=== PATIENT | male | born 1995 | race African-American/Black ===

== ENCOUNTER 2016-05-29 14:07 | Emergency (ER) | payer MEDICAID, OTHER ==
[~2016-05-29] VITALS: Ht 175.3 cm; Wt 75.0 kg
[~2016-05-29 14:07] MED LIST: ALBU1AER INH; ALBUAER3 INH
[2016-05-29 14:29] VITALS: BP 120/68; PULSE 96; RESP 16; TEMP 98.3; O2SAT 97
--- NOTE | 2016-05-29 15:48 | PD ---
HPI Chief Complaint: Chest Pain Stated Complaint: CHEST COMPLAINT Time Seen by Provider: 15:48 Travel History International Travel<30 days: No Contact w/Intl Traveler<30days: No Known affected area: No History of Present Illness HPI 21-year-old male with a history of asthma presents to emergency department for evaluation of substernal chest pain, nonradiating, that occurred last night following an argument with his . Patient states that it was sharp but resolved. He states he had some associated shortness of breath. He denies any cardiac history. Denies illicit drug use. Denies any current chest pain or tightness. He is not having any shortness of breath. Denies nausea, vomiting, diarrhea. No recent illnesses, fever, chills. He denies any recent travel. No history of PE or DVT. No other symptoms to report. History Past Medical History Medical History: Denies Significant Hx Social History Alcohol Use: No Tobacco Use: Yes Allergies-Medications (Allergen,Severity, Reaction): Coded Allergies: No Known Allergies (Verified , 03/03/16) Reported Meds & Prescriptions Reported Meds & Active Scripts Active Proair Hfa 8.5 GM Inh (Albuterol Sulfate) 90 Mcg/Act Aer 2 Puff INH Q4-6H PRN 108 mcg/actuation Reported Proair Hfa (Albuterol Sulfate) 8.5 Gm Aero 2 Puff INH Q4 * SHAKE WELL BEFORE USE * Review of Systems Except as stated in HPI: all other systems reviewed are Neg Physical Exam Narrative GENERAL: Well-nourished, well-developed male patient in no acute distress SKIN: Warm and dry. HEAD: Normocephalic. EYES: No scleral icterus. No injection or drainage. NECK: Supple, trachea midline. No JVD or lymphadenopathy. CARDIOVASCULAR: Elevated rate and rhythm without murmurs, gallops, or rubs. RESPIRATORY: Breath sounds equal bilaterally. No accessory muscle use. GASTROINTESTINAL: Abdomen soft, non-tender, nondistended. MUSCULOSKELETAL: No cyanosis, or edema. BACK: Nontender without obvious deformity. No CVA tenderness. Data Data Last Documented VS Vital Signs Date Time Temp Pulse Resp B/P Pulse Ox O2 Delivery O2 Flow Rate FiO2 05/29/16 14:29 98.3 96 16 120/68 97 Orders Electrocardiogram (05/29/16 ) Basic Metabolic Panel (Bmp) (05/29/16 15:47) Ckmb (Isoenzyme) Profile (05/29/16 15:47) Complete Blood Count With Diff (05/29/16 15:47) Magnesium (Mg) (05/29/16 15:47) Prothrombin Time / Inr (Pt) (05/29/16 15:47) Act Partial Throm Time (Ptt) (05/29/16 15:47) Troponin I (05/29/16 15:47) Chest, Single Ap (05/29/16 15:47) CKMB (05/29/16 16:05) CKMB% (05/29/16 16:05) Labs Laboratory Tests Test 05/29/16 16:05 White Blood Count 5.8 TH/MM3 Red Blood Count 5.26 MIL/MM3 Hemoglobin 17.2 GM/DL Hematocrit 50.1 % Mean Corpuscular Volume 95.1 FL Mean Corpuscular Hemoglobin 32.6 PG Mean Corpuscular Hemoglobin 34.3 % Concent Red Cell Distribution Width 13.1 % Platelet Count 215 TH/MM3 Mean Platelet Volume 8.6 FL Neutrophils (%) (Auto) 62.5 % Lymphocytes (%) (Auto) 28.0 % Monocytes (%) (Auto) 7.9 % Eosinophils (%) (Auto) 0.9 % Basophils (%) (Auto) 0.7 % Neutrophils # (Auto) 3.6 TH/MM3 Lymphocytes # (Auto) 1.6 TH/MM3 Monocytes # (Auto) 0.5 TH/MM3 Eosinophils # (Auto) 0.0 TH/MM3 Basophils # (Auto) 0.0 TH/MM3 CBC Comment DIFF FINAL Differential Comment Prothrombin Time 12.1 SEC Prothromb Time International 1.1 RATIO Ratio Activated Partial 25.0 SEC Thromboplast Time Sodium Level 139 MEQ/L Potassium Level 3.5 MEQ/L Chloride Level 104 MEQ/L Carbon Dioxide Level 27.7 MEQ/L Anion Gap 7 MEQ/L Blood Urea Nitrogen 13 MG/DL Creatinine 1.30 MG/DL Estimat Glomerular Filtration 85 ML/MIN Rate Random Glucose 79 MG/DL Calcium Level 9.6 MG/DL Magnesium Level 2.0 MG/DL Total Creatine Kinase 369 U/L Creatine Kinase MB 1.3 NG/ML Creatine Kinase MB % 0.4 % Troponin I LESS THAN 0.02 NG/ML MDM Medical Decision Making Medical Screen Exam Complete: Yes Emergency Medical Condition: Yes Medical Record Reviewed: Yes Differential Diagnosis Indigestion versus bronchospasm versus muscle strain versus costochondritis versus pleuritis Narrative Course 21-year-old male presents to the emergency department for evaluation of substernal chest pain, nonradiating that occurred last night after an argument with his heart. Patient appears without distress vital signs are stable except for slightly elevated heart rate. EKG is normal sinus rhythm without ST elevation or depression. This was evaluated by ED physician. Chest x-rays without acute cardiopulmonary disease. Lab work is without acute concern. CPK is elevated at 369. Based on Wells criteria, PE is low probability. Patient states that he feels well at this time. He is requesting to go home. Based on results of tests and no cardiac history and patient's age, I feel that patient can be appropriately discharged at this time. Discussed the patient denied any physician Dr. Floyd who agrees. Patient agrees to return immediately with any acute worsening symptoms. Diagnosis Primary Impression: Chest wall pain Referrals: Primary Care Physician Patient Instructions: Chest Wall Pain (ED), General Instructions Additional Instructions: Follow-up with a primary care provider Maintain adequate oral hydration Return immediately to the emergency department with symptoms Med/Other Pt SpecificInfo: No Change to Meds Disposition: 01 DISCHARGE HOME Condition: Stable Sailaja Mckeon May 29, 2016 15:48
[2016-05-29 16:26] LABS: AUTOMATED NEUTROPHIL # 3.6 TH/MM3 (1.8-7.7); BASOPHIL % 0.7 % (0.0-2.0); EOSINOPHIL % 0.9 % (0.0-4.0); HEMATOCRIT 50.1 % (39.0-51.0); HEMO FLAGS DIFF FINAL; LYMPHOCYTE # 1.6 TH/MM3 (1.0-4.8); MEAN CELL VOLUME 95.1 FL (80.0-100.0); MEAN CORPUSCULAR HEMOGLOBIN 32.6 PG (27.0-34.0); MEAN CORPUSCULAR HGB CONC 34.3 % (32.0-36.0); MONO % 7.9 % (0.0-8.0); NEUT % 62.5 % (16.0-70.0); PLATELET COUNT 215 TH/MM3 (150-450); RED BLOOD COUNT 5.26 MIL/MM3 (4.50-5.90); RED CELL DISTRIBUTION WIDTH 13.1 % (11.6-17.2); WHITE BLOOD COUNT 5.8 TH/MM3 (4.0-11.0)
--- NOTE | 2016-05-29 16:37 | RADRPT ---
EXAM DATE/TIME: 05/29/2016 15:58 [facility] COMPARISON: No previous studies available for comparison. INDICATIONS : Chest pain. MEDICAL HISTORY : None. SURGICAL HISTORY : None. ENCOUNTER: Initial ACUITY: 2 days PAIN SCORE: 6/10 LOCATION: Bilateral chest FINDINGS: A single view of the chest demonstrates the lungs to be symmetrically aerated without evidence of mas s, infiltrate or effusion. The cardiomediastinal contours are unremarkable. Osseous structures are intact. CONCLUSION: No acute disease. Hakeem Ruffin MD on May 29, 2016 at 16:35 Board Certified Radiologist. This report was verified electronically.
[2016-05-29 16:54] LABS: ANION GAP 7 MEQ/L (5-15); BICARBONATE 27.7 MEQ/L (21.0-32.0); BLOOD UREA NITROGEN 13 MG/DL (7-18); CHLORIDE 104 MEQ/L (98-107); GLOMERULAR FILTRATION RATE 85 ML/MIN (>89); POTASSIUM 3.5 MEQ/L (3.5-5.1); SODIUM (NA) 139 MEQ/L (136-145)
[2016-05-29 16:58] LABS: CREATINE KINASE 369 U/L (39-308); INTERNATIONAL NORMALIZED RATIO 1.1 RATIO; PROTHROMBIN TIME - PATIENT 12.1 SEC (9.8-11.6)
[2016-05-29 17:10] LABS: CKMB 1.3 NG/ML (0.5-3.6)
--- NOTE | 2016-05-30 14:23 | EKG ---
Date Performed: 05/29/2016 Time Performed: 15:01:56 PTAGE: 21 years EKG: Sinus rhythm EARLY REPOLARIZATION BORDERLINE ECG PREVIOUS TRACING : 06/29/2013 09.04 Since previous tracing, no significant change noted DOCTOR: Casandra Allen Interpretating Date/Time 05/30/2016 14:21:10
== END 2016-05-29 17:36 | disposition home or self-care (01) ==
LOC: NETRI 14:07
DX: R07.89 Other chest pain (principal); R94.31 Abnormal electrocardiogram [ECG] [EKG]; Z72.0 Tobacco use
CPT/HCPCS: 71010; 80048; 82550; 82552; 83735; 84484; 85025; 85610; 85730; 93005

== ENCOUNTER 2016-10-27 14:21 | Emergency (ER) | payer OTHER ==
[~2016-10-27] VITALS: Ht 175.3 cm; Wt 65.0 kg
[2016-10-27 14:24] VITALS: BP 133/69; PULSE 89; RESP 16; TEMP 99.3; O2SAT 97
--- NOTE | 2016-10-27 14:49 | PD ---
Physical Exam Time Seen by Provider: 14:48 Narrative 21 y/o male with cough, sinus congestion for 3 days. Denies fever. Hx asthma. Vital signs reviewed. Seen at triage desk. Awaiting bed placement. Data Data Last Documented VS Vital Signs Date Time Temp Pulse Resp B/P Pulse Ox O2 Delivery O2 Flow Rate FiO2 10/27/16 14:24 99.3 89 16 133/69 97 Room Air [facility] Medical Record Reviewed: Yes Supervised Visit with KAY: John Tracy Oct 27, 2016 14:49
--- NOTE | 2016-10-27 15:43 | PD ---
HPI Chief Complaint: Cold / Flu Symptoms Time Seen by Provider: 15:43 Travel History International Travel<30 days: No Contact w/Intl Traveler<30days: No Traveled to known affect area: No History of Present Illness HPI 21-year-old male presents to the emergency Department with complaint of sinus congestion, cough, chest tightness, shortness of breath, and sore throat 3 days. History of asthma. Does not have an inhaler. Reports wheezing "sometimes." Denies fever, vomiting. Denies body aches, headache. Denies lump in throat, difficulty swallowing, and usual drooling. Reports painful swallowing. Has not taken any medications or tried any trauma to the bases symptoms. No known allergies. Has no medical complaints. No other modified factors or associated signs and symptoms. PFSH Past Medical History Asthma: Yes Headaches: Yes Respiratory: Yes (ASTHMA) Immunizations Current: Yes Sleep Apnea: Yes Influenza Vaccination: No Past Surgical History Abdominal Surgery: Yes Ear Surgery: Yes (ROP ) Eye Surgery: Yes (LEFT EYE) Social History Alcohol Use: No Tobacco Use: Yes (1 PPD) Substance Use: No Allergies-Medications (Allergen,Severity, Reaction): Coded Allergies: No Known Allergies (Verified , 10/27/16) Reported Meds & Prescriptions Reported Meds & Active Scripts Active Nasonex Nasal [place] (Mometasone Furoate) 50 Mcg/Act Naspr 2 [place] EACH NARE DAILY PRN Tessalon Perles (Benzonatate) 100 Mg Cap 100 Mg PO TID PRN Deltasone (Prednisone) 20 Mg Tab 40 Mg PO DAILY 4 Days Start October 28, 2016 Proair Hfa 8.5 GM Inh (Albuterol Sulfate) 90 Mcg/Act Aer 2 Puff INH Q4-6H PRN 108 mcg/actuation Review of Systems Except as stated in HPI: all other systems reviewed are Neg Physical Exam Narrative GENERAL: Well-nourished, well-developed male patient, in no acute distress; afebrile, nontoxic-appearing SKIN: Warm and dry. No rash. HEAD: Atraumatic. Normocephalic. EYES: Pupils equal and round. No scleral icterus. No injection or drainage. ENT: Mucosa pink and moist. Oropharynx with erythema; without edema or exudates. No uvular edema. No uvular, palatal, or tonsillar deviation. Airway patent. EARS: Bilateral pinnae and external canals appear within normal limits. Bilateral tympanic membranes without erythema, dullness or perforation. NECK: Trachea midline. With anterior cervical lymphadenopathy and tenderness on palpation. CARDIOVASCULAR: Regular rate and rhythm. No murmur appreciated. RESPIRATORY: No accessory muscle use. Clear to auscultation and decreased in bilateral bases. Breath sounds equal bilaterally. No retractions or tachypnea. No audible wheezing. GASTROINTESTINAL: Abdomen soft, non-tender, nondistended. Hepatic and splenic margins not palpable. Bowel sounds are active 4 quadrants. MUSCULOSKELETAL: No obvious deformities. No clubbing. No cyanosis. No edema. NEUROLOGICAL: Awake and alert. Oriented 3. No obvious cranial nerve deficits. Motor grossly within normal limits. Normal speech. Moves all extremities. 5/5 strength to all extremities. PSYCHIATRIC: Appropriate mood and affect; insight and judgment normal. Data Data Last Documented VS Vital Signs Date Time Temp Pulse Resp B/P Pulse Ox O2 Delivery O2 Flow Rate FiO2 10/27/16 14:24 99.3 89 16 133/69 97 Room Air Orders Prednisone (Deltasone) (10/27/16 15:45) Albuterol Neb (Albuterol Neb) (10/27/16 15:45) Group A Rapid Strep Screen (10/27/16 15:43) Ibuprofen (Motrin) (10/27/16 15:45) Strep Culture (Group A) (10/27/16 15:50) MDM Medical Decision Making Medical Screen Exam Complete: Yes Emergency Medical Condition: Yes Medical Record Reviewed: Yes Differential Diagnosis Viral illness, viral pharyngitis, strep pharyngitis, mild asthma exacerbation Narrative Course 21-year-old male with cough and cold symptoms 3 days. Patient is afebrile and nontoxic-appearing. History of asthma. Patient is in no acute distress and without retractions or tachypnea. Rapid strep ordered. Albuterol nebulizer, Deltasone, ibuprofen ordered. 1629: Rapid strep negative. Patient reports improvement in symptoms. Denies chest tightness or shortness of breath at this time. Lungs are clear and equal throughout with increased airflow. Pro-air inhaler, Deltasone, Tessalon Perles , Nasonex nasal spray prescribed for home. Patient verbalizes understanding and agreement with treatment plan. Patient is medically cleared and stable for discharge. Discussed reasons to return to the emergency department. Instructed patient to follow up with primary care provider. Patient agrees with treatment plan. The patients vital signs are stable and the patient is stable for outpatient follow-up and treatment. Patient discharged home, stable and in no acute distress. Diagnosis Primary Impression: Viral illness Additional Impression: Mild asthma exacerbation Referrals: Primary Care Physician Patient Instructions: Asthma (ED), Cold Symptoms (ED), General Instructions, Safe Use of Cough and Cold Medicines (ED) Departure Forms: Tests/Procedures, Work Release Enter return to work date: Oct 29, 2016 Additional Instructions: Use Albuterol inhaler as prescribed Take oral steroids as prescribed and complete full course Use Tessalon Perles as prescribed to decrease coughing spasms Waun-[id number] decongestants or antihistamines as directed and as needed for symptom management Your cough can last 4-6 weeks Drink plenty of fluids to prevent dehydration Use hot air humidifier to decrease cough exacerbation Turn off ceiling fans and sleep with head of bed elevated Avoid triggers such as second hand smoke, dust, known allergens Follow-up with your primary care provider Return to the emergency department immediately with worsening of symptoms Med/Other Pt SpecificInfo: Prescription(s) given Scripts Mometasone Nasal [place] (Nasonex Nasal [place])50 Mcg/Act Naspr2 [place] EACH NARE DAILY PRN (NASAL CONGESTION) #1 BOTTLE Ref 0 Prov:Elizabeth Colvin 10/27/16 Benzonatate (Tessalon Perles)100 Mg [id number] Mg PO TID PRN (COUGH) #10 CAP Ref 0 Prov:Elizabeth Colvin 10/27/16 Prednisone (Deltasone)20 Mg Tab40 Mg PO DAILY 4 Days Ref 0 Start October 28, 2016 Prov:Elizabeth Colvin 10/27/16 Albuterol 8.5 GM Inh (Proair Hfa 8.5 GM Inh)90 Mcg/Act Aer2 Puff INH Q4-6H PRN ( wheezing) #1 INHALER Ref 0 108 mcg/actuation Prov:Elizabeth Colvin 10/27/16 Disposition: 01 DISCHARGE HOME Condition: Stable Elizabeth Colvin Oct 27, 2016 15:43
[2016-10-27] MEDS ORDERED: predniSONE 20 MG TAB PO ONE (15:45)
[2016-10-27] MEDS ORDERED: IBUPROFEN 800 MG TAB PO ONE (15:45)
[2016-10-27] MEDS ORDERED: RESP: ALBUTEROL 2.5 MG/3 ML NEB (SCH) INH ONE (15:45)
[2016-10-27] MEDS ORDERED: ALBUAER3 INH (15:49)
[2016-10-27] MEDS ORDERED: PRED-503 PO (15:49)
[2016-10-27] MEDS ORDERED: BENZ100 PO (15:49)
[2016-10-27] MEDS ORDERED: MOME17I EACH NARE (15:49)
== END 2016-10-27 17:02 | disposition home or self-care (01) ==
LOC: NEPK 14:21
DX: B34.9 Viral infection, unspecified (principal); J45.901 Unspecified asthma with (acute) exacerbation; F17.210 Nicotine dependence, cigarettes, uncomplicated
CPT/HCPCS: 87081; 87880; 94664; 99284; J7512; J7613

== ENCOUNTER 2017-01-04 17:21 | Emergency (ER) | payer OTHER ==
[~2017-01-04 17:21] MED LIST changes: -ALBU1AER INH; +BENZ100 PO; +MOME17I EACH NARE; +PRED-503 PO
[2017-01-04 17:23] VITALS: BP 124/69; PULSE 82; RESP 20; TEMP 97.8; O2SAT 98
--- NOTE | 2017-01-04 17:48 | PD ---
HPI Chief Complaint: Laceration/Skin Injury Time Seen by Provider: 17:46 Travel History International Travel<30 days: No Contact w/Intl Traveler<30days: No Traveled to known affect area: No History of Present Illness HPI 21-year-old male presents to the emergency Department with complaint of a cut to his left index finger obtained from cutting some food with a knife on Thursday. He went to work yesterday and the cut started bleeding so his work told him he had to be evaluated to return back to work. He reports being up-to- date on his tetanus vaccination. Denies paresthesias, loss of sensation or decreased range of motion, decreased strength to the finger. Denies fever, vomiting. Has no medical complaints. The symptoms are mild in severity. No known allergies. No epinephrine factors or associated signs and symptoms. PFSH Past Medical History Asthma: Yes Headaches: Yes Respiratory: Yes (ASTHMA) Immunizations Current: Yes Sleep Apnea: Yes Tetanus Vaccination: < 5 Years Influenza Vaccination: No Past Surgical History Abdominal Surgery: Yes Ear Surgery: Yes (ROP ) Eye Surgery: Yes (LEFT EYE) Social History Alcohol Use: No Tobacco Use: Yes (1/2 PPD) Substance Use: No Allergies-Medications (Allergen,Severity, Reaction): Coded Allergies: No Known Allergies (Verified , 01/04/17) Reported Meds & Prescriptions Reported Meds & Active Scripts Active Nasonex Nasal [place] (Mometasone Furoate) 50 Mcg/Act Naspr 2 [place] EACH NARE DAILY PRN Tessalon Perles (Benzonatate) 100 Mg Cap 100 Mg PO TID PRN Deltasone (Prednisone) 20 Mg Tab 40 Mg PO DAILY 4 Days Start October 28, 2016 Proair Hfa 8.5 GM Inh (Albuterol Sulfate) 90 Mcg/Act Aer 2 Puff INH Q4-6H PRN 108 mcg/actuation Review of Systems Except as stated in HPI: all other systems reviewed are Neg Physical Exam Narrative GENERAL: Well-nourished, well-developed -[place] male patient, in no acute distress SKIN: Warm and dry. Approximately 1 cm superficial cuts to the dorsal aspect of the left index finger between the PIP and DIP joints; without erythema, edema , drainage. HEAD: Atraumatic. Normocephalic. EYES: Pupils equal and round. No scleral icterus. No injection or drainage. ENT: Mucosa pink and moist. Airway patent. NECK: Trachea midline. CARDIOVASCULAR: Regular rate. RESPIRATORY: No accessory muscle use. GASTROINTESTINAL: Flat. MUSCULOSKELETAL: No obvious deformities. No clubbing. No cyanosis. No edema. NEUROLOGICAL: Awake and alert. Oriented 3. No obvious cranial nerve deficits. Motor grossly within normal limits. Normal speech. PSYCHIATRIC: Appropriate mood and affect; insight and judgment normal. Data Data Last Documented VS Vital Signs Date Time Temp Pulse Resp B/P Pulse Ox O2 Delivery O2 Flow Rate FiO2 01/04/17 17:23 97.8 82 20 124/69 98 Room Air Orders Wound Care (01/04/17 17:48) [facility] Medical Decision Making Medical Screen Exam Complete: Yes Emergency Medical Condition: Yes Medical Record Reviewed: Yes Differential Diagnosis Cut, laceration, abrasion, medical clearance Narrative Course 21-year-old male with a cut to his left index finger. Up to date on tetanus vaccination. Wound care provided and Dermabond applied. Work release provided. Instructed patient to follow up with primary care provider. Patient verbalizes understanding and agreement with treatment plan. Patient is medically cleared and stable for discharge. Discussed reasons to return to the emergency department. Patient agrees with treatment plan. The patients vital signs are stable and the patient is stable for outpatient follow-up and treatment. Patient discharged home, stable and in no acute distress. Diagnosis Primary Impression: Cut of finger Referrals: Primary Care Physician Patient Instructions: Finger Laceration (ED), General Instructions Departure Forms: Tests/Procedures, Work Release Enter return to work date: Jan 05, 2017 Additional Instructions: Keep area clean and dry Ibuprofen or Tylenol as directed and as needed for pain and inflammation Follow-up with primary care provider Return to the emergency department immediately with worsening of symptoms Med/Other Pt SpecificInfo: No Meds Exist/No RX given Disposition: DISCHARGE HOME Condition: Stable Elizabeth Colvin Jan 04, 2017 17:48
== END 2017-01-04 18:19 | disposition home or self-care (01) ==
LOC: NEPD 17:21
DX: S61.211A Laceration without foreign body of left index finger without damage to nail, initial encounter (principal); W26.0XXA Contact with knife, initial encounter; Y93.G1 Activity, food preparation and clean up
CPT/HCPCS: 12001

== ENCOUNTER 2017-05-08 17:55 | Emergency (ER) | payer OTHER ==
[2017-05-08 17:56] VITALS: BP 114/60; PULSE 98; RESP 14; TEMP 98.9; O2SAT 98
[2017-05-08] MEDS ORDERED: SODIUM CHLOR 0.9% 1000 ML INJ 1,000 ML IV SCH (18:43)
[2017-05-08] MEDS ORDERED: MORPHINE SULFATE 4 MG/ML INJ IV PUSH ONE (18:45)
[2017-05-08] MEDS ORDERED: SODIUM CHLORIDE 0.9% FLUSH 10 ML FLUSH IV FLUSH PRN (18:45)
[2017-05-08] MEDS ORDERED: ONDANSETRON HCL 4 MG/2 ML VIAL IVP ONE (18:45)
--- NOTE | 2017-05-08 18:47 | PD ---
HPI Chief Complaint: GI Complaint Time Seen by Provider: 18:31 Travel History International Travel<30 days: No Contact w/Intl Traveler<30days: No Traveled to known affect area: No History of Present Illness HPI c/o abdominal crampy pain, 10, associated with n/v/d since 4am today, no alleviating/aggravating factors noted. no other assoc factors such as rash/galvan/ cp/back pain/ all:denies pshx:denies pmhx:asthma as a child PFSH Past Medical History Asthma: Yes Headaches: Yes Respiratory: Yes (ASTHMA) Immunizations Current: Yes Sleep Apnea: Yes Past Surgical History Abdominal Surgery: Yes Ear Surgery: Yes (ROP ) Eye Surgery: Yes (LEFT EYE) Social History Alcohol Use: No Tobacco Use: Yes (1/2 PPD) Substance Use: No Allergies-Medications (Allergen,Severity, Reaction): Coded Allergies: No Known Allergies (Verified Adverse Reaction, Unknown, 05/08/17) Reported Meds & Prescriptions Reported Meds & Active Scripts Active Proair Hfa 8.5 GM Inh (Albuterol Sulfate) 90 Mcg/Act Aer 2 Puff INH Q4-6H PRN 108 mcg/actuation Review of Systems General / Constitutional: No: Fever Eyes: No: Visual changes HENT: No: Headaches Cardiovascular: No: Chest Pain or Discomfort Respiratory: No: Shortness of Breath Gastrointestinal: Positive: Nausea, Vomiting, Diarrhea, Abdominal Pain Genitourinary: No: Dysuria Musculoskeletal: No: Pain Skin: No Rash Neurologic: No: Weakness Psychiatric: No: Depression Endocrine: No: Polydipsia Hematologic/Lymphatic: No: Easy Bruising Physical Exam Narrative GENERAL: SKIN: Warm and dry. HEAD: Atraumatic. Normocephalic. EYES: Pupils equal and round. No scleral icterus. No injection or drainage. ENT: No nasal bleeding or discharge. Mucous membranes pink and moist. NECK: Trachea midline. No JVD. CARDIOVASCULAR: Regular rate and rhythm. RESPIRATORY: No accessory muscle use. Clear to auscultation. Breath sounds equal bilaterally. GASTROINTESTINAL: Abdomen soft, non-tender, nondistended. MUSCULOSKELETAL: Extremities without clubbing, cyanosis, or edema. No obvious deformities. NEUROLOGICAL: Awake and alert. No obvious cranial nerve deficits. Motor grossly within normal limits. Five out of 5 muscle strength in the arms and legs. Normal speech. PSYCHIATRIC: Appropriate mood and affect; insight and judgment normal. Data Data Last Documented VS Vital Signs Date Time Temp Pulse Resp B/P (MAP) Pulse Ox O2 Delivery O2 Flow Rate FiO2 05/08/17 19:42 75 16 106/60 (75) 99 Room Air 05/08/17 17:56 98.9 Orders Orders Complete Blood Count With Diff (05/08/17 18:43) Comprehensive Metabolic Panel (05/08/17 18:43) Lipase (05/08/17 18:43) Urinalysis - C+S If Indicated (05/08/17 18:43) Ct Abd/Pel W/O Iv Contrast (05/08/17 18:43) Iv Access Insert/Monitor (05/08/17 18:43) Ecg Monitoring (05/08/17 18:43) Oximetry (05/08/17 18:43) NPO (05/08/17 18:43) Morphine Inj (Morphine Inj) (05/08/17 18:45) Ondansetron Inj (Zofran Inj) (05/08/17 18:45) Sodium Chlor 0.9% 1000 Ml Inj (Ns 1000 M (05/08/17 18:43) Sodium Chloride 0.9% Flush (Ns Flush) (05/08/17 18:45) Labs Laboratory Tests Test 05/08/17 19:00 05/08/17 19:25 White Blood Count 8.8 TH/MM3 Red Blood Count 4.78 MIL/MM3 Hemoglobin 16.4 GM/DL Hematocrit 46.3 % Mean Corpuscular Volume 96.8 FL Mean Corpuscular Hemoglobin 34.2 PG Mean Corpuscular Hemoglobin Concent 35.4 % Red Cell Distribution Width 12.5 % Platelet Count 174 TH/MM3 Mean Platelet Volume 8.9 FL Neutrophils (%) (Auto) 86.9 % Lymphocytes (%) (Auto) 5.1 % Monocytes (%) (Auto) 6.9 % Eosinophils (%) (Auto) 0.8 % Basophils (%) (Auto) 0.3 % Neutrophils # (Auto) 7.6 TH/MM3 Lymphocytes # (Auto) 0.4 TH/MM3 Monocytes # (Auto) 0.6 TH/MM3 Eosinophils # (Auto) 0.1 TH/MM3 Basophils # (Auto) 0.0 TH/MM3 CBC Comment DIFF FINAL Differential Comment Blood Urea Nitrogen 8 MG/DL Creatinine 1.10 MG/DL Random Glucose 85 MG/DL Total Protein 8.2 GM/DL Albumin 4.3 GM/DL Calcium Level 9.2 MG/DL Alkaline Phosphatase 73 U/L Aspartate Amino Transf (AST/SGOT) 45 U/L Alanine Aminotransferase (ALT/SGPT) 35 U/L Total Bilirubin 1.0 MG/DL Sodium Level 138 MEQ/L Potassium Level 3.5 MEQ/L Chloride Level 102 MEQ/L Carbon Dioxide Level 28.0 MEQ/L Anion Gap 8 MEQ/L Estimat Glomerular Filtration Rate 102 ML/MIN Lipase 64 U/L Urine Color YELLOW Urine Turbidity CLEAR Urine pH 6.5 Urine Specific [place] 1.017 Urine Protein NEG mg/dL Urine Glucose (UA) NEG mg/dL Urine Ketones 10 mg/dL Urine Occult Blood NEG Urine Nitrite NEG Urine Bilirubin NEG Urine Urobilinogen 2.0 MG/DL Urine Leukocyte Esterase NEG Urine WBC LESS THAN 1 /hpf Microscopic Urinalysis Comment CULT NOT INDICATED MDM Medical Decision Making Medical Screen Exam Complete: Yes Emergency Medical Condition: Yes Medical Record Reviewed: Yes Differential Diagnosis gastroenteritis v appy v colitis v enteritis v divertic Narrative Course nl lipase, nl electrolytes, no anemia, and ct abd/pelvis neg for appy/colitis/ divertic Diagnosis Primary Impression: Viral gastroenteritis Patient Instructions: Gastroenteritis (DC), General Instructions Departure Forms: Tests/Procedures, Work Release Enter return to work date: May 11, 2017 Additional Instructions: you can take over the counter immodium for your diarrhea and use the prescriptions for pain medication and nausea/vomiting medicine Scripts Tramadol (Ultram) 50 Mg Tab 50 MG PO Q6H Y for PAIN, #14 TAB 0 Refills Prov: Kevan Maya MD 05/08/17 Ondansetron Odt (Zofran Odt) 4 Mg Tab 4 MG SL Q6HR Y for Nausea/Vomiting, #20 TAB 0 Refills Prov: Kevan Maya MD 05/08/17 Disposition: 01 DISCHARGE HOME Condition: Stable Kevan Maya MD May 08, 2017 18:47
[2017-05-08 19:17] LABS: AUTOMATED NEUTROPHIL # 7.6 TH/MM3 (1.8-7.7); BASOPHIL % 0.3 % (0.0-2.0); EOSINOPHIL # 0.1 TH/MM3 (0-0.4); EOSINOPHIL % 0.8 % (0.0-4.0); HEMATOCRIT 46.3 % (39.0-51.0); HEMOGLOBIN 16.4 GM/DL (13.0-17.0); LYMPH % 5.1 % (9.0-44.0); LYMPHOCYTE # 0.4 TH/MM3 (1.0-4.8); MEAN CELL VOLUME 96.8 FL (80.0-100.0); MEAN CORPUSCULAR HEMOGLOBIN 34.2 PG (27.0-34.0); MEAN CORPUSCULAR HGB CONC 35.4 % (32.0-36.0); MEAN PLATELET VOLUME 8.9 FL (7.0-11.0); MONO % 6.9 % (0.0-8.0); MONOCYTE # 0.6 TH/MM3 (0-0.9); NEUT % 86.9 % (16.0-70.0); PLATELET COUNT 174 TH/MM3 (150-450); RED BLOOD COUNT 4.78 MIL/MM3 (4.50-5.90); RED CELL DISTRIBUTION WIDTH 12.5 % (11.6-17.2); WHITE BLOOD COUNT 8.8 TH/MM3 (4.0-11.0)
[2017-05-08 19:23] VITALS: BP 107/59; PULSE 77; RESP 18; O2SAT 96
--- NOTE | 2017-05-08 19:30 | RADRPT ---
EXAM DATE/TIME: 05/08/2017 19:08 [place] COMPARISON: No previous studies available for comparison. INDICATIONS : Vomiting today. ORAL CONTRAST: No oral contrast ingested. RADIATION DOSE: 4.44 CTDIvol (mGy) MEDICAL HISTORY : None SURGICAL HISTORY : None. ENCOUNTER: Initial ACUITY: 1 day PAIN SCALE: 8/10 LOCATION: abdomen TECHNIQUE: Volumetric scanning of the abdomen and pelvis was performed. Using automated exposure control and ad justment of the mA and/or kV according to patient size, radiation dose was kept as low as reasonably achievable to obtain optimal diagnostic quality images. DICOM format image data is available electro nically for review and comparison. FINDINGS: Lung bases are clear. No acute findings in the liver, spleen, adrenals, kidneys or pancreas. No free fluid. No bowel obstruction. No adenopathy. There is a benign-appearing cystic change in the L4 vertebral body, possibly a Schmorl's node. Suspec criss pars defects at the lumbosacral junction. CONCLUSION: 1. No acute findings within the abdomen and pelvis. 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 Naif Allen MD on May 08, 2017 at 19:25 Board Certified Radiologist. This report was verified electronically.
[2017-05-08 19:37] LABS: ALBUMIN 4.3 GM/DL (3.4-5.0); AST (GOT) 45 U/L (15-37); BLOOD UREA NITROGEN 8 MG/DL (7-18); CALCIUM 9.2 MG/DL (8.5-10.1); CHLORIDE 102 MEQ/L (98-107); GLOMERULAR FILTRATION RATE 102 ML/MIN (>89); GLUCOSE,RANDOM 85 MG/DL (74-106); LIPASE 64 U/L (73-393); SODIUM (NA) 138 MEQ/L (136-145)
[2017-05-08 19:40] LABS: ALKALINE PHOSPHATASE 73 U/L (45-117); ALT (GPT) 35 U/L (12-78); TOTAL PROTEIN 8.2 GM/DL (6.4-8.2)
[2017-05-08 19:42] VITALS: BP 106/60; PULSE 75; RESP 16; O2SAT 99
[2017-05-08 19:49] LABS: BILIRUBIN, URINE NEG (NEG); BLOOD, URINE NEG (NEG); GLUCOSE,URINE NEG (NEG); KETONE, URINE 10 mg/dL (NEG); NITRITE,URINE NEG (NEG); PH, URINE 6.5 (5.0-8.5); URINE COLOR YELLOW (YELLW/STRAW); URINE LEUKOCYTE ESTERASE NEG (NEG)
[2017-05-08] MEDS ORDERED: ZOFR4TAB3 SL (21:02)
[2017-05-08] MEDS ORDERED: TRAM50 PO (21:02)
== END 2017-05-08 22:18 | disposition home or self-care (01) ==
LOC: NEPD 17:55
DX: A08.4 Viral intestinal infection, unspecified (principal); F17.200 Nicotine dependence, unspecified, uncomplicated; G47.30 Sleep apnea, unspecified; Z87.09 Personal history of other diseases of the respiratory system
CPT/HCPCS: 74176; 80053; 81001; 83690; 85025; 96374; 96375; 99285; J2270; J2405; J7030